=== PATIENT | male | born 1990 | race Caucasian/White ===

== ENCOUNTER 2018-03-08 17:38 | Emergency (ER) | payer OTHER ==
[2018-03-08 17:46] VITALS: BP 120/76; TEMP 97.3; BMI 33.1
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
== END 2018-03-08 18:35 | disposition home or self-care (01) ==
LOC: ED 17:38
DX: L03.818 Cellulitis of other sites (principal); F17.210 Nicotine dependence, cigarettes, uncomplicated
CPT/HCPCS: 36415; 86617; 86757; 87070; 87186; 87798; 99282

== ENCOUNTER 2018-05-10 16:35 | Emergency (ER) ==
[2018-05-10 19:07] VITALS: BP 113/73; TEMP 98; BMI 34.7
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
== END 2018-05-10 22:38 | disposition home or self-care (01) ==
LOC: ED 19:00
DX: S69.92XA Unspecified injury of left wrist, hand and finger(s), initial encounter (principal); W22.8XXA Striking against or struck by other objects, initial encounter; F17.210 Nicotine dependence, cigarettes, uncomplicated
CPT/HCPCS: 99282

== ENCOUNTER 2018-09-14 17:18 | Emergency (ER) | payer MEDICAID, OTHER ==
[2018-09-14 17:32] VITALS: BP 153/87; TEMP 98.4; BMI 34.9
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
--- NOTE | 2018-09-14 18:17 | CT ---
EXAM: CT scan abdomen pelvis without contrast HISTORY: Right-sided pain COMPARISON: CT scan abdomen pelvis 01/16/2016 FINDINGS: Contiguous axial images obtained through the abdomen pelvis without contrast arising 3-mm collimation. Sagittal and coronal reconstructions were imaged and viewed.. The visualized lung base s are clear. The gallbladder is mildly contracted. The liver, pancreas, spleen and adrenal glands h ave normal unenhanced CT appearance. There are several punctate nonobstructive calculi with the left kidney. There is no evidence of right-sided nephrolithiasis. Scarring is noted laterally about the right kidney. The abdominal aorta is normal in course and caliber. There is a normal appendix.. T here is no free fluid or inflammatory changes. The bladder is small volumed limiting evaluation.. T he prostate gland is normal in size. IMPRESSION: Nonobstructive left-sided nephrolithiasis. Normal appendix. No evidence of free fluid or inflammatory changes.
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
== END 2018-09-14 18:45 | disposition home or self-care (01) ==
LOC: ED 17:18
DX: R10.31 Right lower quadrant pain (principal); R07.9 Chest pain, unspecified; M25.542 Pain in joints of left hand; Z72.0 Tobacco use
CPT/HCPCS: 36415; 74176; 80053; 81001; 85025; 99283